=== PATIENT | female | born 1945 | race Caucasian/White ===

== ENCOUNTER 2017-12-16 10:23 | Outpatient (CLI) | payer MEDICARE | END 2017-12-16 10:24 | disposition home or self-care (01) | LOC: BICMAMMO 10:23 | PROVIDERS: ATTEND Nurse Practitioner | DX: Z12.31 Encounter for screening mammogram for malignant neoplasm of breast (principal) | CPT/HCPCS: 77063; 77067 ==

== ENCOUNTER 2018-07-26 11:57 | Outpatient (CLI) | payer MEDICARE | END 2018-07-26 11:58 | disposition home or self-care (01) | LOC: BICULT 11:57 | PROVIDERS: ATTEND Urology | DX: N39.41 Urge incontinence (principal); Z87.440 Personal history of urinary (tract) infections | CPT/HCPCS: 76770 ==

== ENCOUNTER 2019-02-08 13:26 | Outpatient (CLI) | payer MEDICARE ==
--- NOTE | 2019-02-08 14:41 | MMO ---
Bilateral MAMMO Bilat Screen [facility]. CLINICAL HISTORY: Patient is 73 years old and is seen for screening. The patient has no family history of breast cancer. The patient has no personal history of cancer. The patient has a history of left Ultrasound Guided Core Biopsy in ? - benign. VIEWS: The views performed were: bilateral craniocaudal with tomosynthesis and bilateral mediolateral oblique with tomosynthesis. FILMS COMPARED: The present examination has been compared to prior imaging studies performed at [facility] on 12/16/2017, and at [facility], [facility] on 03/21/2014. MAMMOGRAM FINDINGS: There are scattered fibroglandular densities. There is a stable biopsy clip seen in the left breast. There are no suspicious masses, suspicious calcifications, or new areas of architectural distortion. IMPRESSION: THERE IS NO MAMMOGRAPHIC EVIDENCE OF MALIGNANCY. A ROUTINE FOLLOW-UP MAMMOGRAM IN 1 YEAR IS RECOMMENDED. THE RESULTS OF THIS EXAM WERE SENT TO THE PATIENT. ACR BI-RADS Category 2 - Benign finding MAMMOGRAPHY NOTE: 1. A negative mammogram report should not delay a biopsy if a dominant of clinically suspicious mass is present. 2. Approximately 10% to 15% of breast cancers are not detected by mammography. 3. Adenosis and dense breasts may obscure an underlying neoplasm.
== END 2019-02-08 13:27 | disposition home or self-care (01) ==
LOC: BICMAMMO 13:26
PROVIDERS: ATTEND Nurse Practitioner
DX: Z12.31 Encounter for screening mammogram for malignant neoplasm of breast (principal)
CPT/HCPCS: 77063; 77067

== ENCOUNTER 2020-07-24 10:33 | Outpatient (CLI) | payer MEDICARE ==
--- NOTE | 2020-07-24 11:37 | MMO ---
Bilateral MAMMO Bilat Screen [facility]. CLINICAL HISTORY: Patient is 74 years old and is seen for screening. The patient has no family history of breast cancer. The patient has no personal history of cancer. The patient has a history of left Ultrasound Guided Core Biopsy in ? - benign. VIEWS: The views performed were: bilateral craniocaudal with tomosynthesis and bilateral mediolateral oblique with tomosynthesis. FILMS COMPARED: The present examination has been compared to prior imaging studies performed at [facility] on 12/16/2017 and 02/08/2019, and at [facility], [facility] on 03/21/2014. This study has been interpreted with the assistance of computer-aided detection. MAMMOGRAM FINDINGS: There are scattered fibroglandular densities. There is a biopsy clip seen in the left breast. There are no suspicious masses, suspicious calcifications, or new areas of architectural distortion. IMPRESSION: THERE IS NO MAMMOGRAPHIC EVIDENCE OF MALIGNANCY. A ROUTINE FOLLOW-UP MAMMOGRAM IN 1 YEAR IS RECOMMENDED. THE RESULTS OF THIS EXAM WERE SENT TO THE PATIENT. ACR BI-RADS Category 2 - Benign finding MAMMOGRAPHY NOTE: 1. A negative mammogram report should not delay a biopsy if a dominant of clinically suspicious mass is present. 2. Approximately 10% to 15% of breast cancers are not detected by mammography. 3. Adenosis and dense breasts may obscure an underlying neoplasm. Reported by: ZAIDA DEXTER MD Electonically Signed: [id number]
== END 2020-07-24 10:34 | disposition home or self-care (01) ==
LOC: BICMAMMO 10:33
PROVIDERS: ATTEND Nurse Practitioner
DX: Z12.31 Encounter for screening mammogram for malignant neoplasm of breast (principal); Z91.89 Other specified personal risk factors, not elsewhere classified
CPT/HCPCS: 77063; 77067

== ENCOUNTER 2023-02-16 15:43 | Inpatient (IN) | payer MEDICARE ==
[~2023-02-16 15:43] MED LIST: Iopamidol-370 76% 500 ML MDV (1 ML CHARGE) ONE
[2023-02-16 16:56] LABS: #Basophils 0.1 thou/uL (0.0-0.2); #Eosinphils 0.2 thou/uL (0.0-0.7); #Lymphocytes 2.1 thou/uL (1.20-3.40); #Monocytes 0.8 thou/uL (0.11-0.59); #Neutrophils 7.4 thou/uL (1.40-6.50); %Basophils 0.6 % (0.0-1.0); %Eosinophils 1.8 % (0.0-10.0); %Lymphocytes 20.2 % (21.0-51.0); %Monocytes 7.2 % (0.0-10.0); %Neutrophils 70.1 % (42.0-75.0); Hemoglobin 12.5 g/dL (12.0-16.0); Mean Corpuscular Hemoglobin 31.6 pg (27.0-31.0); Mean Corpuscular Volume 95.6 fl (78.0-98.0); Mean Platelet Volume 6.5 fL (7.4-10.4); Platelet Count 367 10x3/uL (130-400); RBC Distribution Width 11.8 % (11.5-14.5); Red Blood Cell (RBC) Count 3.95 mill/uL (4.20-5.40); White Blood Cell (WBC) Count 10.5 10x3/uL (4.8-10.8)
[2023-02-16 17:22] LABS: ALT (SGPT) 12 U/L (8-55); AST (SGOT) 21 U/L (5-34); Albumin 3.7 g/dL (3.4-4.8); Alkaline Phosphatase 97 U/L (40-110); Anion Gap 14 mmol/L (10-20); BUN (Urea Nitrogen) 20 mg/dL (9.8-20.1); Bilirubin, Total 0.4 mg/dL (0.2-1.2); Calc. Creatinine Clearance 0 mL/min (70-130); Calcium 10.4 mg/dL (7.8-10.44); Carbon Dioxide 24 mmol/L (23-31); Chloride 101 mmol/L (98-107); Estimated GFR 65; Globulin 3.9 g/dL (2.4-3.5); Glucose 97 mg/dL (83-110); Lipase 36 U/L (8-78); Potassium 3.7 mmol/L (3.5-5.1); Protein, Total 7.6 g/dL (5.8-8.1); Sodium 135 mmol/L (136-145)
[2023-02-16] MEDS ORDERED: Ondansetron ODT 4 MG TAB SL PRN (20:15)
[2023-02-16] MEDS ORDERED: Ondansetron PF 4 MG/2 ML Vial IVP PRN (20:15)
[2023-02-16] MEDS ORDERED: Acetaminophen 650 MG Suppository PR PRN (20:16)
[2023-02-16 21:35] VITALS: BMI 30.2
[2023-02-16] MEDS: Sodium Chloride 0.9% 1,000 ML IV SCH (21:43)
[2023-02-16] MEDS: Acetaminophen 325 MG TAB PO PRN (21:54)
[2023-02-16] MEDS ORDERED: traZODone HCl 50 MG TAB PO SCH (22:00)
[2023-02-16] MEDS ORDERED: rOPINIRole HCl 0.5 MG TAB PO SCH (22:00)
[2023-02-17 04:58] LABS: Bacteria/HPF None Seen HPF (None Seen); Bilirubin Negative (Negative); Blood, Urine Negative (Negative); Clarity Clear (Clear); Glucose, Urine (Dipstick) Normal (Negative); Ketone, Urine Trace mg/dL (Negative); Leukocyte 250 Leu/uL (Negative); Nitrite 2+ (Negative); Protein, Urine (Dipstick) Negative (Neg-Trace); RBC/HPF 0-3 HPF (0-3); Specific Gravity, Urine 1.029 (1.002-1.036); Squamous Epithelial 0-3 HPF (0-3); Urobilinogen Normal mg/dL (Less than 2)
[2023-02-17] MEDS: Sodium Chloride 0.9% 1,000 ML IV SCH (05:35)
[2023-02-17] MEDS: Levothyroxine Sodium 75 MCG TAB PO SCH (05:36)
[2023-02-17 06:17] LABS: #Basophils 0.1 thou/uL (0.0-0.2); #Eosinphils 0.5 thou/uL (0.0-0.7); #Lymphocytes 2.3 thou/uL (1.20-3.40); #Monocytes 0.6 thou/uL (0.11-0.59); #Neutrophils 4.1 thou/uL (1.40-6.50); %Basophils 1.3 % (0.0-1.0); %Eosinophils 6.3 % (0.0-10.0); %Lymphocytes 30.7 % (21.0-51.0); %Monocytes 7.3 % (0.0-10.0); %Neutrophils 54.5 % (42.0-75.0); Hemoglobin 10.5 g/dL (12.0-16.0); Mean Corpuscular Hemoglobin 31.3 pg (27.0-31.0); Mean Corpuscular Volume 97.6 fl (78.0-98.0); Mean Platelet Volume 6.6 fL (7.4-10.4); Platelet Count 295 10x3/uL (130-400); Red Blood Cell (RBC) Count 3.35 mill/uL (4.20-5.40); White Blood Cell (WBC) Count 7.6 10x3/uL (4.8-10.8)
[2023-02-17 06:45] LABS: Anion Gap 11 mmol/L (10-20); BUN (Urea Nitrogen) 14 mg/dL (9.8-20.1); Calc. Creatinine Clearance 74 mL/min (70-130); Carbon Dioxide 23 mmol/L (23-31); Chloride 111 mmol/L (98-107); Estimated GFR 76; Glucose 80 mg/dL (83-110); Potassium 3.4 mmol/L (3.5-5.1); Sodium 142 mmol/L (136-145)
[2023-02-17] MEDS ORDERED: guaiFENesin 200 MG TAB PO PRN (08:15)
[2023-02-17] MEDS: Acetaminophen 325 MG TAB PO PRN (09:21)
[2023-02-17] MEDS: DULoxetine 60 MG CAP PO SCH (09:21)
[2023-02-17] MEDS: Fish Oil 1,000 MG CAP PO SCH (09:22)
[2023-02-17] MEDS: Folic Acid 1 MG TAB PO SCH (09:22)
[2023-02-17] MEDS: Multivit, Therapeutic 1 TAB PO SCH (09:22)
[2023-02-17] MEDS: Fluticasone Propionate Nasal Spray 16 gm Bottle NASAL SCH (10:20)
[2023-02-17] MEDS: Artificial Tear Sol 15 ML BOT EA EYE SCH ×2 (10:20→20:07)
[2023-02-17] MEDS: rOPINIRole HCl 0.5 MG TAB PO SCH (20:08)
[2023-02-17] MEDS: traZODone HCl 50 MG TAB PO SCH (20:10)
[2023-02-17] MEDS: Latanoprost 0.005% Ophth Soln 2.5 ml Bottle EA EYE SCH (21:47)
[2023-02-18] MEDS: Levothyroxine Sodium 75 MCG TAB PO SCH (05:14)
[2023-02-18] MEDS: HYDROcodone/Acetaminophen 5/325 mg Tablet PO PRN ×2 (06:37→21:46)
[2023-02-18] MEDS: Artificial Tear Sol 15 ML BOT EA EYE SCH ×2 (08:14→21:48)
[2023-02-18] MEDS: DULoxetine 60 MG CAP PO SCH (08:14)
[2023-02-18] MEDS: Multivit, Therapeutic 1 TAB PO SCH (08:14)
[2023-02-18] MEDS: Fish Oil 1,000 MG CAP PO SCH (08:14)
[2023-02-18] MEDS: Fluticasone Propionate Nasal Spray 16 gm Bottle NASAL SCH (08:14)
[2023-02-18] MEDS: Apixaban 5 MG TAB PO SCH ×2 (08:14→21:46)
[2023-02-18] MEDS: Folic Acid 1 MG TAB PO SCH (08:14)
[2023-02-18] MEDS: rOPINIRole HCl 0.5 MG TAB PO SCH (21:44)
[2023-02-18] MEDS: traZODone HCl 50 MG TAB PO SCH (21:45)
[2023-02-18] MEDS: Latanoprost 0.005% Ophth Soln 2.5 ml Bottle EA EYE SCH (21:47)
[2023-02-19] MEDS: Levothyroxine Sodium 75 MCG TAB PO SCH (05:01)
[2023-02-19] MEDS: DULoxetine 30 MG CAP PO SCH (08:39)
[2023-02-19] MEDS: Multivit, Therapeutic 1 TAB PO SCH (08:39)
[2023-02-19] MEDS: Fish Oil 1,000 MG CAP PO SCH (08:39)
[2023-02-19] MEDS: Folic Acid 1 MG TAB PO SCH (08:40)
[2023-02-19] MEDS: Fluticasone Propionate Nasal Spray 16 gm Bottle NASAL SCH (08:40)
[2023-02-19] MEDS: Artificial Tear Sol 15 ML BOT EA EYE SCH ×2 (08:40→20:34)
[2023-02-19] MEDS: Apixaban 5 MG TAB PO SCH ×2 (08:40→20:34)
[2023-02-19] MEDS: Latanoprost 0.005% Ophth Soln 2.5 ml Bottle EA EYE SCH (20:35)
[2023-02-19] MEDS: rOPINIRole HCl 0.5 MG TAB PO SCH (20:35)
[2023-02-19] MEDS: HYDROcodone/Acetaminophen 5/325 mg Tablet PO PRN (20:36)
[2023-02-19] MEDS: traZODone HCl 50 MG TAB PO SCH (20:36)
[2023-02-20] MEDS: Levothyroxine Sodium 75 MCG TAB PO SCH (05:15)
[2023-02-20 07:39] VITALS: BP 126/66; TEMP 98
[2023-02-20] MEDS: Multivit, Therapeutic 1 TAB PO SCH (08:28)
[2023-02-20] MEDS: Folic Acid 1 MG TAB PO SCH (08:28)
[2023-02-20] MEDS: Apixaban 5 MG TAB PO SCH (08:28)
[2023-02-20] MEDS: Fish Oil 1,000 MG CAP PO SCH (08:29)
[2023-02-20] MEDS: Artificial Tear Sol 15 ML BOT EA EYE SCH (08:29)
[2023-02-20] MEDS: DULoxetine 30 MG CAP PO SCH (08:29)
[2023-02-20] MEDS: Fluticasone Propionate Nasal Spray 16 gm Bottle NASAL SCH (08:30)
[2023-02-20 08:59] LABS: #Basophils 0.1 thou/uL (0.0-0.2); #Eosinphils 0.4 thou/uL (0.0-0.7); #Lymphocytes 2.1 thou/uL (1.20-3.40); #Monocytes 0.6 thou/uL (0.11-0.59); #Neutrophils 5.4 thou/uL (1.40-6.50); %Basophils 0.6 % (0.0-1.0); %Eosinophils 4.8 % (0.0-10.0); %Lymphocytes 24.9 % (21.0-51.0); %Neutrophils 62.7 % (42.0-75.0); Hemoglobin 11.2 g/dL (12.0-16.0); Mean Corpuscular HGB CONC 33.1 g/dL (32.0-36.0); Mean Corpuscular Hemoglobin 31.5 pg (27.0-31.0); Mean Corpuscular Volume 95.2 fl (78.0-98.0); Mean Platelet Volume 6.4 fL (7.4-10.4); Platelet Count 319 10x3/uL (130-400); RBC Distribution Width 12.2 % (11.5-14.5); Red Blood Cell (RBC) Count 3.54 mill/uL (4.20-5.40); White Blood Cell (WBC) Count 8.6 10x3/uL (4.8-10.8)
[2023-02-20 09:20] LABS: Anion Gap 13 mmol/L (10-20); BUN (Urea Nitrogen) 15 mg/dL (9.8-20.1); Calc. Creatinine Clearance 72 mL/min (70-130); Calcium 9.4 mg/dL (7.8-10.44); Carbon Dioxide 24 mmol/L (23-31); Chloride 107 mmol/L (98-107); Estimated GFR 73; Glucose 98 mg/dL (83-110); Potassium 3.7 mmol/L (3.5-5.1); Sodium 140 mmol/L (136-145)
== END 2023-02-20 11:17 | disposition swing bed (61) | DRG 175 ==
LOC: ERS 15:43 → T4-B 19:52 → OBSVTOIN 02-17 17:24
PROVIDERS: ADMIT Internal Medicine; ATTEND Internal Medicine
DX: I26.93 Single subsegmental thrombotic pulmonary embolism without acute cor pulmonale (principal); G93.41 Metabolic encephalopathy; I82.413 Acute embolism and thrombosis of femoral vein, bilateral; C34.11 Malignant neoplasm of upper lobe, right bronchus or lung; E87.1 Hypo-osmolality and hyponatremia; I82.431 Acute embolism and thrombosis of right popliteal vein; I82.4Z2 Acute embolism and thrombosis of unspecified deep veins of left distal lower extremity; Z66 Do not resuscitate; I10 Essential (primary) hypertension; E03.9 Hypothyroidism, unspecified; E78.5 Hyperlipidemia, unspecified; I25.10 Atherosclerotic heart disease of native coronary artery without angina pectoris; G89.29 Other chronic pain; M54.50 Low back pain, unspecified; W18.30XA Fall on same level, unspecified, initial encounter; S82.832A Other fracture of upper and lower end of left fibula, initial encounter for closed fracture; Z79.899 Other long term (current) drug therapy; Z79.51 Long term (current) use of inhaled steroids; Z79.890 Hormone replacement therapy; Z90.710 Acquired absence of both cervix and uterus; Z98.890 Other specified postprocedural states
CPT/HCPCS: 36415; 70450; 71045; 71275; 80048; 80053; 81001; 83605; 83690; 84484; 85025; 93005; 93970; 94760; 96360; 96361; 96372; G0378; J1650; J7050; Q9967

== ENCOUNTER 2023-03-03 14:00 | Outpatient (CLI) | payer MEDICARE | END 2023-03-03 14:01 | disposition home or self-care (01) | LOC: TBSIIMAG 14:00 | PROVIDERS: ATTEND Neurological Surgery | DX: M54.2 Cervicalgia (principal); M79.641 Pain in right hand; M47.812 Spondylosis without myelopathy or radiculopathy, cervical region; M46.02 Spinal enthesopathy, cervical region; M25.841 Other specified joint disorders, right hand; M77.8 Other enthesopathies, not elsewhere classified | CPT/HCPCS: 72040 ==

== ENCOUNTER 2023-03-05 12:29 | Outpatient (CLI) | payer MEDICARE | END 2023-03-05 12:30 | disposition home or self-care (01) | LOC: TXB&SI 12:29 → TBSIIMAG 12:30 | PROVIDERS: ATTEND Neurological Surgery | DX: M47.16 Other spondylosis with myelopathy, lumbar region (principal); M54.6 Pain in thoracic spine; M48.061 Spinal stenosis, lumbar region without neurogenic claudication; M51.24 Other intervertebral disc displacement, thoracic region; M24.28 Disorder of ligament, vertebrae; M48.07 Spinal stenosis, lumbosacral region | CPT/HCPCS: 72146; 72148 ==

== ENCOUNTER 2023-05-26 17:51 | Inpatient (IN) | payer MEDICARE ==
[2023-05-26 19:12] LABS: #Monocytes 0.1 thou/uL (0.11-0.59); #Neutrophils 15.3 thou/uL (1.40-6.50); %Basophils 0.3 % (0.0-1.0); %Eosinophils 0.1 % (0.0-10.0); %Lymphocytes 2.4 % (21.0-51.0); %Monocytes 0.8 % (0.0-10.0); %Neutrophils 95.8 % (42.0-75.0); Hematocrit 35.7 % (36.0-47.0); Hemoglobin 11.5 g/dL (12.0-16.0); Mean Corpuscular HGB CONC 32.2 g/dL (32.0-36.0); Mean Corpuscular Hemoglobin 30.3 pg (27.0-31.0); Mean Corpuscular Volume 93.9 fl (78.0-98.0); Mean Platelet Volume 9.4 fL (7.4-10.4); Platelet Count 234 10x3/uL (130-400); RBC Distribution Width 14.1 % (11.5-14.5)
[2023-05-26 19:44] LABS: ALT (SGPT) 10 U/L (8-55); AST (SGOT) 17 U/L (5-34); Albumin 3.3 g/dL (3.4-4.8); Alkaline Phosphatase 98 U/L (40-110); Anion Gap 14 mmol/L (10-20); BUN (Urea Nitrogen) 25 mg/dL (9.8-20.1); Bilirubin, Total 0.5 mg/dL (0.2-1.2); Calc. Creatinine Clearance 0 mL/min (70-130); Calcium 9.4 mg/dL (7.8-10.44); Carbon Dioxide 21 mmol/L (23-31); Chloride 105 mmol/L (98-107); Estimated GFR 68; Globulin 2.8 g/dL (2.4-3.5); Glucose 95 mg/dL (83-110); Lipase 34 U/L (8-78); Potassium 3.3 mmol/L (3.5-5.1); Protein, Total 6.1 g/dL (5.8-8.1); Sodium 137 mmol/L (136-145)
[2023-05-26] MEDS ORDERED: Cefepime 2 GM VIAL ONE (19:50)
[2023-05-26 19:52] LABS: Bacteria/HPF 4+ HPF (None Seen); Bilirubin Negative (Negative); Blood, Urine 3+ (Negative); CAUTI Indications for Culture Pelvic or flank pain; Clarity Turbid (Clear); Glucose, Urine (Dipstick) Normal (Negative); Ketone, Urine Negative (Negative); Leukocyte 250 Leu/uL (Negative); Nitrite Negative (Negative); Protein, Urine (Dipstick) 20 mg/dL (Neg-Trace); RBC/HPF Greater than 50 HPF (0-3); Specific Gravity, Urine 1.012 (1.002-1.036); Squamous Epithelial 0-3 HPF (0-3); Urobilinogen Normal mg/dL (Less than 2); WBC/HPF 21-50 HPF (0-3)
[2023-05-26 19:55] LABS: Urine Culture Reflex Yes Yes
[2023-05-26] MEDS ORDERED: Vancomycin 1 GM/200 ML (FROZEN) BAG ONE (21:03)
[2023-05-26 22:23] LABS: Lactic Acid 2.2 mmol/L (0.5-2.2)
[2023-05-26] MEDS ORDERED: Potassium Chloride 20 MEQ TAB ONE (22:35)
[2023-05-26] MEDS ORDERED: Ondansetron PF 4 MG/2 ML Vial IVP PRN (23:24)
[2023-05-26] MEDS ORDERED: Sodium Chloride 0.9% 1,000 ML IV SCH (23:30)
[2023-05-26] MEDS ORDERED: Apixaban 5 MG TAB PO SCH (23:45)
[2023-05-27] MEDS: Acetaminophen 325 MG TAB PO PRN ×2 (00:02→06:58)
[2023-05-27 00:15] VITALS: BMI 31.8
[2023-05-27 06:52] LABS: #Basophils 0.1 thou/uL (0.0-0.2); #Eosinphils 0.1 thou/uL (0.0-0.7); #Monocytes 0.9 thou/uL (0.11-0.59); #Neutrophils 18.2 thou/uL (1.40-6.50); %Basophils 0.3 % (0.0-1.0); %Eosinophils 0.6 % (0.0-10.0); %Monocytes 4.2 % (0.0-10.0); %Neutrophils 89.5 % (42.0-75.0); Hematocrit 32.5 % (36.0-47.0); Hemoglobin 10.1 g/dL (12.0-16.0); Mean Corpuscular HGB CONC 31.1 g/dL (32.0-36.0); Mean Corpuscular Hemoglobin 30.1 pg (27.0-31.0); Mean Platelet Volume 9.4 fL (7.4-10.4); Platelet Count 213 10x3/uL (130-400); RBC Distribution Width 14.5 % (11.5-14.5); Red Blood Cell (RBC) Count 3.35 mill/uL (4.20-5.40); White Blood Cell (WBC) Count 20.4 10x3/uL (4.8-10.8)
[2023-05-27 07:13] LABS: Anion Gap 11 mmol/L (10-20); BUN (Urea Nitrogen) 19 mg/dL (9.8-20.1); Calc. Creatinine Clearance 76 mL/min (70-130); Calcium 8.7 mg/dL (7.8-10.44); Carbon Dioxide 22 mmol/L (23-31); Chloride 111 mmol/L (98-107); Estimated GFR 77; Glucose 88 mg/dL (83-110); Sodium 140 mmol/L (136-145)
[2023-05-27] MEDS: Apixaban 5 MG TAB PO SCH ×2 (08:37→20:44)
[2023-05-27] MEDS: Cefepime 2 GM in Sodium Chloride 0.9% 100 ML IVPB SCH ×2 (08:37→20:28)
[2023-05-27] MEDS: traZODone HCl 50 MG TAB PO SCH (20:45)
[2023-05-27] MEDS ORDERED: DULoxetine 60 MG CAP PO SCH (20:45)
[2023-05-27] MEDS: cycloSPORINE 0.05% Ophthalmic Droperette EA EYE SCH (21:46)
[2023-05-28] MEDS: Acetaminophen 325 MG TAB PO PRN ×3 (06:02→22:00)
[2023-05-28 06:42] LABS: Hematocrit 32.7 % (36.0-47.0); Hemoglobin 10.4 g/dL (12.0-16.0); Mean Corpuscular HGB CONC 31.8 g/dL (32.0-36.0); Mean Corpuscular Hemoglobin 30.3 pg (27.0-31.0); Mean Corpuscular Volume 95.3 fl (78.0-98.0); Platelet Count 189 10x3/uL (130-400); RBC Distribution Width 14.3 % (11.5-14.5); Red Blood Cell (RBC) Count 3.43 mill/uL (4.20-5.40); White Blood Cell (WBC) Count 9.1 10x3/uL (4.8-10.8)
[2023-05-28 06:43] LABS: #Basophils 0.1 thou/uL (0.0-0.2); #Eosinphils 0.2 thou/uL (0.0-0.7); #Monocytes 0.8 thou/uL (0.11-0.59); %Basophils 0.6 % (0.0-1.0); %Eosinophils 2.2 % (0.0-10.0); %Lymphocytes 10.3 % (21.0-51.0); %Monocytes 9.1 % (0.0-10.0); %Neutrophils 77.2 % (42.0-75.0); Mean Platelet Volume 9.5 fL (7.4-10.4)
[2023-05-28 07:02] LABS: Anion Gap 10 mmol/L (10-20); BUN (Urea Nitrogen) 15 mg/dL (9.8-20.1); Calc. Creatinine Clearance 75 mL/min (70-130); Carbon Dioxide 24 mmol/L (23-31); Chloride 108 mmol/L (98-107); Sodium 138 mmol/L (136-145)
[2023-05-28 07:03] LABS: Estimated GFR 76; Glucose 90 mg/dL (83-110); Magnesium 1.6 mg/dL (1.6-2.6)
[2023-05-28] MEDS ORDERED: Levothyroxine Sodium 75 MCG TAB PO SCH (09:00)
[2023-05-28] MEDS: Cefepime 2 GM in Sodium Chloride 0.9% 100 ML IVPB SCH ×2 (09:16→21:48)
[2023-05-28] MEDS: DULoxetine 60 MG CAP PO SCH (09:16)
[2023-05-28] MEDS: cycloSPORINE 0.05% Ophthalmic Droperette EA EYE SCH ×2 (09:17→21:47)
[2023-05-28] MEDS: Apixaban 5 MG TAB PO SCH ×2 (09:17→21:48)
[2023-05-28] MEDS: Cyanocobalamin (Vitamin B-12) 1,000 MCG TAB PO SCH (09:17)
[2023-05-28] MEDS: Sodium Chloride 0.65% Nasal 44 ML BOT EA NARE PRN (09:18)
[2023-05-28] MEDS ORDERED: ALPRAZolam 0.5 MG TAB PO PRN (13:19)
[2023-05-28] MEDS: traZODone HCl 50 MG TAB PO SCH (21:47)
[2023-05-28] MEDS: Latanoprost 0.005% Ophth Soln 2.5 ml Bottle EA EYE SCH (23:17)
[2023-05-29] MEDS: Levothyroxine Sodium 75 MCG TAB PO SCH (04:32)
[2023-05-29] MEDS: Acetaminophen 325 MG TAB PO PRN ×2 (04:33→21:45)
[2023-05-29] MEDS ORDERED: traMADol HCl 50 MG TAB PO PRN (04:48)
[2023-05-29 06:05] LABS: #Basophils 0.1 thou/uL (0.0-0.2); #Eosinphils 0.3 thou/uL (0.0-0.7); #Monocytes 0.8 thou/uL (0.11-0.59); #Neutrophils 3.5 thou/uL (1.40-6.50); %Eosinophils 5.1 % (0.0-10.0); %Lymphocytes 25.9 % (21.0-51.0); %Monocytes 12.4 % (0.0-10.0); %Neutrophils 55.3 % (42.0-75.0); Hematocrit 33.4 % (36.0-47.0); Hemoglobin 10.8 g/dL (12.0-16.0); Mean Corpuscular HGB CONC 32.3 g/dL (32.0-36.0); Mean Corpuscular Hemoglobin 29.7 pg (27.0-31.0); Mean Platelet Volume 9.5 fL (7.4-10.4); Platelet Count 189 10x3/uL (130-400); RBC Distribution Width 14.3 % (11.5-14.5); Red Blood Cell (RBC) Count 3.64 mill/uL (4.20-5.40); White Blood Cell (WBC) Count 6.3 10x3/uL (4.8-10.8)
[2023-05-29 06:26] LABS: Anion Gap 13 mmol/L (10-20); BUN (Urea Nitrogen) 13 mg/dL (9.8-20.1); Calc. Creatinine Clearance 79 mL/min (70-130); Calcium 9.4 mg/dL (7.8-10.44); Carbon Dioxide 22 mmol/L (23-31); Chloride 110 mmol/L (98-107); Estimated GFR 80; Glucose 88 mg/dL (83-110); Sodium 141 mmol/L (136-145)
[2023-05-29 06:56] LABS: Mean Corpuscular Volume 91.8 fl (78.0-98.0)
[2023-05-29] MEDS: Apixaban 5 MG TAB PO SCH ×2 (08:39→21:46)
[2023-05-29] MEDS: Ascorbic Acid 500 mg Chewable Tablet PO SCH (08:39)
[2023-05-29] MEDS: Cyanocobalamin (Vitamin B-12) 1,000 MCG TAB PO SCH (08:39)
[2023-05-29] MEDS: DULoxetine 60 MG CAP PO SCH (08:39)
[2023-05-29] MEDS: Fluticasone Propionate Nasal Spray 16 gm Bottle NASAL SCH (08:41)
[2023-05-29] MEDS ORDERED: Ciprofloxacin 500 MG TAB PO SCH (08:45)
[2023-05-29] MEDS: Cefepime 2 GM in Sodium Chloride 0.9% 100 ML IVPB SCH (08:46)
[2023-05-29] MEDS ORDERED: CALCIUM CARB PO SCH (09:00)
[2023-05-29] MEDS ORDERED: MAG OX PO SCH (09:00)
[2023-05-29] MEDS ORDERED: ZINC SULF PO SCH (09:00)
[2023-05-29] MEDS: cycloSPORINE 0.05% Ophthalmic Droperette EA EYE SCH ×2 (09:46→21:49)
[2023-05-29] MEDS: traZODone HCl 50 MG TAB PO SCH (21:46)
[2023-05-29] MEDS: Ciprofloxacin 500 MG TAB PO SCH (21:46)
[2023-05-29] MEDS: Latanoprost 0.005% Ophth Soln 2.5 ml Bottle EA EYE SCH (21:49)
[2023-05-30] MEDS: Ciprofloxacin 500 MG TAB PO SCH ×2 (05:13→21:17)
[2023-05-30] MEDS: Levothyroxine Sodium 75 MCG TAB PO SCH (05:13)
[2023-05-30] MEDS: Cyanocobalamin (Vitamin B-12) 1,000 MCG TAB PO SCH (08:58)
[2023-05-30] MEDS: DULoxetine 60 MG CAP PO SCH (08:58)
[2023-05-30] MEDS: Acetaminophen 325 MG TAB PO PRN ×2 (08:58→21:19)
[2023-05-30] MEDS: cycloSPORINE 0.05% Ophthalmic Droperette EA EYE SCH ×2 (08:59→21:28)
[2023-05-30] MEDS: Fluticasone Propionate Nasal Spray 16 gm Bottle NASAL SCH (08:59)
[2023-05-30] MEDS: Ascorbic Acid 500 mg Chewable Tablet PO SCH (08:59)
[2023-05-30] MEDS: Apixaban 5 MG TAB PO SCH ×2 (08:59→21:17)
[2023-05-30] MEDS: Latanoprost 0.005% Ophth Soln 2.5 ml Bottle EA EYE SCH (21:17)
[2023-05-30] MEDS: traZODone HCl 50 MG TAB PO SCH (21:17)
[2023-05-30] MEDS: Sodium Chloride 0.65% Nasal 44 ML BOT EA NARE PRN (21:26)
[2023-05-31] MEDS: Levothyroxine Sodium 75 MCG TAB PO SCH (06:02)
[2023-05-31] MEDS: Ciprofloxacin 500 MG TAB PO SCH ×2 (06:02→21:19)
[2023-05-31] MEDS: Acetaminophen 325 MG TAB PO PRN (06:04)
[2023-05-31] MEDS: Cyanocobalamin (Vitamin B-12) 1,000 MCG TAB PO SCH (08:37)
[2023-05-31] MEDS: Apixaban 5 MG TAB PO SCH ×2 (08:37→21:19)
[2023-05-31] MEDS: DULoxetine 60 MG CAP PO SCH (08:37)
[2023-05-31] MEDS: Ascorbic Acid 500 mg Chewable Tablet PO SCH (08:37)
[2023-05-31] MEDS: cycloSPORINE 0.05% Ophthalmic Droperette EA EYE SCH ×2 (08:38→22:13)
[2023-05-31] MEDS: Fluticasone Propionate Nasal Spray 16 gm Bottle NASAL SCH (08:38)
[2023-05-31] MEDS: traZODone HCl 50 MG TAB PO SCH (21:19)
[2023-05-31] MEDS: Latanoprost 0.005% Ophth Soln 2.5 ml Bottle EA EYE SCH (21:20)
[2023-06-01] MEDS: Levothyroxine Sodium 75 MCG TAB PO SCH (05:26)
[2023-06-01] MEDS: Ciprofloxacin 500 MG TAB PO SCH ×2 (05:26→20:57)
[2023-06-01] MEDS: Ascorbic Acid 500 mg Chewable Tablet PO SCH (09:10)
[2023-06-01] MEDS: Cyanocobalamin (Vitamin B-12) 1,000 MCG TAB PO SCH (09:10)
[2023-06-01] MEDS: cycloSPORINE 0.05% Ophthalmic Droperette EA EYE SCH ×2 (09:10→21:21)
[2023-06-01] MEDS: DULoxetine 60 MG CAP PO SCH (09:10)
[2023-06-01] MEDS: Apixaban 5 MG TAB PO SCH ×2 (09:10→20:57)
[2023-06-01] MEDS: Sodium Chloride 0.65% Nasal 44 ML BOT EA NARE PRN (09:11)
[2023-06-01] MEDS: Fluticasone Propionate Nasal Spray 16 gm Bottle NASAL SCH (09:11)
[2023-06-01] MEDS: Acetaminophen 325 MG TAB PO PRN (17:24)
[2023-06-01] MEDS: traZODone HCl 50 MG TAB PO SCH (20:57)
[2023-06-01] MEDS: Latanoprost 0.005% Ophth Soln 2.5 ml Bottle EA EYE SCH (20:57)
[2023-06-02] MEDS: Acetaminophen 325 MG TAB PO PRN (03:07)
[2023-06-02] MEDS: Levothyroxine Sodium 75 MCG TAB PO SCH (05:30)
[2023-06-02] MEDS: Ciprofloxacin 500 MG TAB PO SCH ×2 (05:30→21:52)
[2023-06-02] MEDS: Apixaban 5 MG TAB PO SCH ×2 (08:37→21:52)
[2023-06-02] MEDS: Ascorbic Acid 500 mg Chewable Tablet PO SCH (08:37)
[2023-06-02] MEDS: Sodium Chloride 0.65% Nasal 44 ML BOT EA NARE PRN (08:37)
[2023-06-02] MEDS: cycloSPORINE 0.05% Ophthalmic Droperette EA EYE SCH ×2 (08:37→21:52)
[2023-06-02] MEDS: Cyanocobalamin (Vitamin B-12) 1,000 MCG TAB PO SCH (08:37)
[2023-06-02] MEDS: Fluticasone Propionate Nasal Spray 16 gm Bottle NASAL SCH (08:37)
[2023-06-02] MEDS: DULoxetine 60 MG CAP PO SCH (08:37)
[2023-06-02] MEDS: traZODone HCl 50 MG TAB PO SCH (21:52)
[2023-06-02] MEDS: Latanoprost 0.005% Ophth Soln 2.5 ml Bottle EA EYE SCH (21:53)
[2023-06-03] MEDS: Ciprofloxacin 500 MG TAB PO SCH ×2 (05:56→22:10)
[2023-06-03] MEDS: Levothyroxine Sodium 75 MCG TAB PO SCH (05:56)
[2023-06-03] MEDS: cycloSPORINE 0.05% Ophthalmic Droperette EA EYE SCH ×2 (08:50→22:10)
[2023-06-03] MEDS: Ascorbic Acid 500 mg Chewable Tablet PO SCH (08:50)
[2023-06-03] MEDS: Apixaban 5 MG TAB PO SCH ×2 (08:50→22:10)
[2023-06-03] MEDS: DULoxetine 60 MG CAP PO SCH (08:50)
[2023-06-03] MEDS: Cyanocobalamin (Vitamin B-12) 1,000 MCG TAB PO SCH (08:50)
[2023-06-03] MEDS: Fluticasone Propionate Nasal Spray 16 gm Bottle NASAL SCH (08:51)
[2023-06-03] MEDS: Sodium Chloride 0.65% Nasal 44 ML BOT EA NARE PRN (08:51)
[2023-06-03] MEDS: traZODone HCl 50 MG TAB PO SCH (22:10)
[2023-06-03] MEDS: Latanoprost 0.005% Ophth Soln 2.5 ml Bottle EA EYE SCH (22:11)
[2023-06-04] MEDS: Ciprofloxacin 500 MG TAB PO SCH ×2 (06:08→21:22)
[2023-06-04] MEDS: Levothyroxine Sodium 75 MCG TAB PO SCH (06:08)
[2023-06-04] MEDS: Ascorbic Acid 500 mg Chewable Tablet PO SCH (08:52)
[2023-06-04] MEDS: DULoxetine 60 MG CAP PO SCH (08:52)
[2023-06-04] MEDS: Cyanocobalamin (Vitamin B-12) 1,000 MCG TAB PO SCH (08:52)
[2023-06-04] MEDS: Apixaban 5 MG TAB PO SCH ×2 (08:52→21:22)
[2023-06-04] MEDS: Fluticasone Propionate Nasal Spray 16 gm Bottle NASAL SCH (08:53)
[2023-06-04] MEDS: cycloSPORINE 0.05% Ophthalmic Droperette EA EYE SCH ×2 (09:57→21:22)
[2023-06-04] MEDS: traZODone HCl 50 MG TAB PO SCH (21:22)
[2023-06-04] MEDS: Latanoprost 0.005% Ophth Soln 2.5 ml Bottle EA EYE SCH (21:22)
[2023-06-05] MEDS: Levothyroxine Sodium 75 MCG TAB PO SCH (05:48)
[2023-06-05] MEDS: Ciprofloxacin 500 MG TAB PO SCH (05:48)
[2023-06-05] MEDS: Cyanocobalamin (Vitamin B-12) 1,000 MCG TAB PO SCH (09:00)
[2023-06-05] MEDS: Ascorbic Acid 500 mg Chewable Tablet PO SCH (09:00)
[2023-06-05] MEDS: Apixaban 5 MG TAB PO SCH (09:00)
[2023-06-05] MEDS: DULoxetine 60 MG CAP PO SCH (09:00)
[2023-06-05] MEDS: Fluticasone Propionate Nasal Spray 16 gm Bottle NASAL SCH (09:00)
[2023-06-05] MEDS: cycloSPORINE 0.05% Ophthalmic Droperette EA EYE SCH (09:28)
[2023-06-05 12:57] VITALS: BP 116/72; TEMP 98.1
== END 2023-06-05 14:37 | DRG 872 ==
LOC: ERS 17:51 → T4-B 22:03
PROVIDERS: ADMIT Internal Medicine; ATTEND Internal Medicine
DX: A41.50 Gram-negative sepsis, unspecified (principal); Z16.29 Resistance to other single specified antibiotic; N13.6 Pyonephrosis; I10 Essential (primary) hypertension; E78.5 Hyperlipidemia, unspecified; E03.9 Hypothyroidism, unspecified; F31.9 Bipolar disorder, unspecified; K44.9 Diaphragmatic hernia without obstruction or gangrene; E87.6 Hypokalemia; R53.81 Other malaise; H92.09 Otalgia, unspecified ear; B96.20 Unspecified Escherichia coli [E. coli] as the cause of diseases classified elsewhere; B96.4 Proteus (mirabilis) (morganii) as the cause of diseases classified elsewhere; Z66 Do not resuscitate; Z96.653 Presence of artificial knee joint, bilateral; Z96.643 Presence of artificial hip joint, bilateral; Z79.899 Other long term (current) drug therapy; Z86.718 Personal history of other venous thrombosis and embolism; Z90.710 Acquired absence of both cervix and uterus; Z98.1 Arthrodesis status; Z98.890 Other specified postprocedural states; Z83.6 Family history of other diseases of the respiratory system; Z79.01 Long term (current) use of anticoagulants
CPT/HCPCS: 36415; 74177; 80048; 80053; 81001; 83605; 83690; 83735; 85025; 87040; 87077; 87086; 87149; 87186; 96365; 96367; J0692; J3370-JW; J3490; J7050; Q9967

== ENCOUNTER 2023-09-07 14:40 | Emergency (ER) | payer MEDICARE, OTHER ==
[2023-09-07 15:14] LABS: #Basophils 0.1 thou/uL (0.0-0.2); #Eosinphils 0.2 thou/uL (0.0-0.7); #Monocytes 0.5 thou/uL (0.11-0.59); #Neutrophils 6.5 thou/uL (1.40-6.50); %Basophils 0.7 % (0.0-1.0); %Eosinophils 2.2 % (0.0-10.0); %Lymphocytes 31.2 % (21.0-51.0); %Monocytes 4.7 % (0.0-10.0); %Neutrophils 60.7 % (42.0-75.0); Hematocrit 38.1 % (36.0-47.0); Hemoglobin 12.4 g/dL (12.0-16.0); Mean Corpuscular HGB CONC 32.5 g/dL (32.0-36.0); Mean Corpuscular Hemoglobin 30.6 pg (27.0-31.0); Mean Corpuscular Volume 94.1 fl (78.0-98.0); Mean Platelet Volume 9.1 fL (7.4-10.4); Platelet Count 274 10x3/uL (130-400); RBC Distribution Width 14.3 % (11.5-14.5); Red Blood Cell (RBC) Count 4.05 mill/uL (4.20-5.40); White Blood Cell (WBC) Count 10.7 10x3/uL (4.8-10.8)
[2023-09-07 15:28] LABS: INR-International Normal Ratio 1.3; PTT 26.9 sec (22.9-36.1); Prothrombin Time 16.3 sec (12.0-14.7)
[2023-09-07 15:40] LABS: ALT (SGPT) 18 U/L (8-55); AST (SGOT) 28 U/L (5-34); Albumin 3.6 g/dL (3.4-4.8); Alkaline Phosphatase 85 U/L (40-110); Anion Gap 14 mmol/L (10-20); BUN (Urea Nitrogen) 23 mg/dL (9.8-20.1); Bilirubin, Total 0.3 mg/dL (0.2-1.2); Calc. Creatinine Clearance 0 mL/min (70-130); Carbon Dioxide 20 mmol/L (23-31); Chloride 106 mmol/L (98-107); Estimated GFR 54; Glucose 140 mg/dL (83-110); Potassium 4.2 mmol/L (3.5-5.1); Protein, Total 6.6 g/dL (5.8-8.1); Sodium 136 mmol/L (136-145)
[2023-09-07 16:52] LABS: Bilirubin Negative (Negative); Blood, Urine Negative (Negative); CAUTI Indications for Culture Pelvic or flank pain; Clarity Clear (Clear); Glucose, Urine (Dipstick) Normal (Negative); Ketone, Urine Negative (Negative); Leukocyte 75 Leu/uL (Negative); Nitrite Negative (Negative); Protein, Urine (Dipstick) Negative (Neg-Trace); RBC/HPF 0-3 HPF (0-3); Squamous Epithelial 0-3 HPF (0-3); Urobilinogen Normal mg/dL (Less than 2); pH, Urine 6.5 (5.0-9.0)
[2023-09-07 17:00] LABS: Bacteria/HPF 1+ HPF (None Seen)
[2023-09-07 17:01] LABS: Urine Culture Reflex Yes Yes
== END 2023-09-07 18:17 | disposition home or self-care (01) ==
LOC: ERS 14:40
DX: N39.0 Urinary tract infection, site not specified (principal); F43.0 Acute stress reaction; I25.10 Atherosclerotic heart disease of native coronary artery without angina pectoris; E03.9 Hypothyroidism, unspecified; I10 Essential (primary) hypertension; Z79.899 Other long term (current) drug therapy; Z79.01 Long term (current) use of anticoagulants
CPT/HCPCS: 36415; 80053; 81001; 83605; 85025; 85610; 85730; 87040; 87077; 87086; 87186; 93005; 94760; 96360

== ENCOUNTER 2024-04-07 15:14 | Inpatient (IN) | payer MEDICARE ==
[2024-04-07 15:43] LABS: #Basophils 0.06 10x3/uL (0.0-0.2); %Basophils 0.9 % (0.0-1.0); %Eosinophils 3.2 % (0.0-10.0); %Lymphocytes 18.5 % (21.0-51.0); %Monocytes 6.8 % (0.0-10.0); %Neutrophils 70.1 % (42.0-75.0); Hematocrit 37.8 % (36.0-47.0); Hemoglobin 12.4 g/dL (12.0-16.0); Mean Corpuscular HGB CONC 32.8 g/dL (32.0-36.0); Mean Corpuscular Hemoglobin 30.7 pg (27.0-31.0); Mean Corpuscular Volume 93.6 fL (78.0-98.0); Mean Platelet Volume 9.6 fL (7.4-10.4); Platelet Count 237 10x3/uL (130-400); RBC Distribution Width 14.3 % (11.5-14.5); Red Blood Cell (RBC) Count 4.04 mill/uL (4.20-5.40)
[2024-04-07 15:58] LABS: ALT (SGPT) 1126 U/L (8-55); AST (SGOT) 1100 U/L (5-34); Albumin 3.3 g/dL (3.4-4.8); Alkaline Phosphatase 262 U/L (40-110); Anion Gap 13 mmol/L (10-20); BUN (Urea Nitrogen) 17 mg/dL (9.8-20.1); Bilirubin, Total 1.9 mg/dL (0.2-1.2); Calc. Creatinine Clearance 0 mL/min (70-130); Carbon Dioxide 26 mmol/L (23-31); Chloride 106 mmol/L (98-107); Estimated GFR 62; Globulin 4.1 g/dL (2.4-3.5); Glucose 113 mg/dL (83-110); Lipase 43 U/L (8-78); Potassium 3.7 mmol/L (3.5-5.1); Protein, Total 7.4 g/dL (5.8-8.1); Sodium 141 mmol/L (136-145)
[2024-04-07] MEDS ORDERED: Ondansetron PF 4 MG/2 ML Vial ONE (16:04)
[2024-04-07] MEDS ORDERED: Morphine 4 MG/ML VIAL ONE (16:11)
[2024-04-07 16:19] LABS: Troponin I Less than 0.010 ng/mL (< 0.028)
[2024-04-07] MEDS ORDERED: Calcium Carbonate 500 MG ChewTAB PO PRN (18:53)
[2024-04-07] MEDS ORDERED: Ondansetron PF 4 MG/2 ML Vial IVP PRN (18:53)
[2024-04-07 20:03] LABS: HBCM Index 0.11 S/CO (0-0.79); HBsAg Index 0.26 S/CO (0-0.99); Hep A IgM AB NONREACTIVE (NonReactive); Hep A IgM S/CO 0.15 S/CO (0-0.79); Hep B Surf Ag NONREACTIVE S/CO (NonReactive); Hep C IgG Ab NONREACTIVE S/CO (NonReactive); Hepatitis B Core IgM Abs NONREACTIVE S/CO (NonReactive)
[2024-04-07] MEDS: Lactated Ringer's 1,000 ML IV SCH (21:55)
[2024-04-07] MEDS: Famotidine/PF 20 mg/2ml Vial SLOW IVP SCH (21:55)
[2024-04-07 22:52] VITALS: BMI 34.6
[2024-04-08 05:26] LABS: #Basophils 0.04 10x3/uL (0.0-0.2); %Basophils 0.8 % (0.0-1.0); %Eosinophils 4.9 % (0.0-10.0); %Lymphocytes 34.6 % (21.0-51.0); %Monocytes 7.8 % (0.0-10.0); %Neutrophils 51.5 % (42.0-75.0); Hematocrit 32.4 % (36.0-47.0); Hemoglobin 10.3 g/dL (12.0-16.0); Mean Corpuscular HGB CONC 31.8 g/dL (32.0-36.0); Mean Corpuscular Hemoglobin 30.2 pg (27.0-31.0); Mean Platelet Volume 9.6 fL (7.4-10.4); Platelet Count 181 10x3/uL (130-400); RBC Distribution Width 14.6 % (11.5-14.5); Red Blood Cell (RBC) Count 3.41 mill/uL (4.20-5.40)
[2024-04-08 05:43] LABS: ALT (SGPT) 840 U/L (8-55); AST (SGOT) 689 U/L (5-34); Albumin 2.7 g/dL (3.4-4.8); Alkaline Phosphatase 223 U/L (40-110); Anion Gap 14 mmol/L (10-20); BUN (Urea Nitrogen) 13 mg/dL (9.8-20.1); Bilirubin, Total 1.9 mg/dL (0.2-1.2); Calc. Creatinine Clearance 78 mL/min (70-130); Calcium 9.2 mg/dL (7.8-10.44); Carbon Dioxide 26 mmol/L (23-31); Chloride 108 mmol/L (98-107); Estimated GFR 70; Globulin 3.2 g/dL (2.4-3.5); Glucose 83 mg/dL (83-110); Potassium 3.8 mmol/L (3.5-5.1); Protein, Total 5.9 g/dL (5.8-8.1); Sodium 144 mmol/L (136-145)
[2024-04-08] MEDS ORDERED: Magnevist 469MG/ML 20 ML VIAL ONE (12:37)
[2024-04-08 12:59] LABS: INR-International Normal Ratio 1.1; Prothrombin Time 14.2 sec (12.0-14.7)
[2024-04-09] MEDS: traZODone HCl 50 MG TAB PO SCH ×2 (00:21→20:34)
[2024-04-09 05:43] LABS: INR-International Normal Ratio 1.1
[2024-04-09 06:00] LABS: ALT (SGPT) 579 U/L (8-55); AST (SGOT) 331 U/L (5-34); Albumin 2.7 g/dL (3.4-4.8); Alkaline Phosphatase 222 U/L (40-110); Anion Gap 11 mmol/L (10-20); BUN (Urea Nitrogen) 15 mg/dL (9.8-20.1); Bilirubin, Total 0.7 mg/dL (0.2-1.2); Calc. Creatinine Clearance 74 mL/min (70-130); Calcium 9.5 mg/dL (7.8-10.44); Carbon Dioxide 26 mmol/L (23-31); Chloride 108 mmol/L (98-107); Estimated GFR 66; Globulin 3.2 g/dL (2.4-3.5); Glucose 83 mg/dL (83-110); Iron 115 ug/dL (50-170); Iron Binding Capacity, Total 251 mcg/dL (265-497); Potassium 3.8 mmol/L (3.5-5.1); Protein, Total 5.9 g/dL (5.8-8.1); Sodium 141 mmol/L (136-145)
[2024-04-09] MEDS ORDERED: ALPRAZolam 0.5 MG TAB PO PRN (07:44)
[2024-04-09] MEDS: Mirabegron ER 25 MG ER.TAB PO SCH (08:28)
[2024-04-09] MEDS: Fluticasone Propionate Nasal Spray 16 gm Bottle NASAL SCH (08:28)
[2024-04-09] MEDS: Sertraline 100 MG TAB PO SCH (08:28)
[2024-04-09] MEDS: Apixaban 2.5 MG TAB PO SCH (08:28)
[2024-04-09] MEDS: Pantoprazole DR 40 MG TAB PO SCH (08:28)
[2024-04-09] MEDS: cycloSPORINE 0.05% Ophthalmic Droperette EA EYE SCH (08:53)
[2024-04-09] MEDS: Morphine 4 MG/ML VIAL SLOW IVP PRN (11:37)
[2024-04-10] MEDS: Levothyroxine Sodium 75 MCG TAB PO SCH (06:00)
[2024-04-10 06:37] LABS: #Basophils 0.04 10x3/uL (0.0-0.2); %Basophils 0.7 % (0.0-1.0); %Eosinophils 4.1 % (0.0-10.0); %Lymphocytes 31.7 % (21.0-51.0); %Monocytes 9.1 % (0.0-10.0); Hematocrit 31.9 % (36.0-47.0); Hemoglobin 10.2 g/dL (12.0-16.0); Mean Corpuscular Hemoglobin 30.6 pg (27.0-31.0); Mean Corpuscular Volume 95.8 fL (78.0-98.0); Mean Platelet Volume 9.7 fL (7.4-10.4); Platelet Count 177 10x3/uL (130-400); RBC Distribution Width 14.6 % (11.5-14.5); Red Blood Cell (RBC) Count 3.33 mill/uL (4.20-5.40)
[2024-04-10 07:02] LABS: ALT (SGPT) 481 U/L (8-55); AST (SGOT) 292 U/L (5-34); Albumin 2.6 g/dL (3.4-4.8); Alkaline Phosphatase 273 U/L (40-110); Anion Gap 12 mmol/L (10-20); BUN (Urea Nitrogen) 15 mg/dL (9.8-20.1); Bilirubin, Total 0.7 mg/dL (0.2-1.2); Calc. Creatinine Clearance 82 mL/min (70-130); Calcium 9.2 mg/dL (7.8-10.44); Carbon Dioxide 25 mmol/L (23-31); Chloride 107 mmol/L (98-107); Estimated GFR 74; Globulin 3.1 g/dL (2.4-3.5); Glucose 102 mg/dL (83-110); Potassium 3.9 mmol/L (3.5-5.1); Protein, Total 5.7 g/dL (5.8-8.1); Sodium 140 mmol/L (136-145)
[2024-04-11 06:59] LABS: #Basophils 0.05 10x3/uL (0.0-0.2); %Basophils 0.6 % (0.0-1.0); %Eosinophils 3.6 % (0.0-10.0); %Lymphocytes 26.6 % (21.0-51.0); %Neutrophils 62.6 % (42.0-75.0); Hematocrit 32.4 % (36.0-47.0); Hemoglobin 10.4 g/dL (12.0-16.0); Mean Corpuscular HGB CONC 32.1 g/dL (32.0-36.0); Mean Corpuscular Volume 96.4 fL (78.0-98.0); Mean Platelet Volume 9.8 fL (7.4-10.4); Platelet Count 172 10x3/uL (130-400); Red Blood Cell (RBC) Count 3.36 mill/uL (4.20-5.40)
[2024-04-11 07:30] LABS: ALT (SGPT) 361 U/L (8-55); AST (SGOT) 165 U/L (5-34); Albumin 2.6 g/dL (3.4-4.8); Alkaline Phosphatase 236 U/L (40-110); Anion Gap 11 mmol/L (10-20); BUN (Urea Nitrogen) 15 mg/dL (9.8-20.1); Bilirubin, Total 0.6 mg/dL (0.2-1.2); Calc. Creatinine Clearance 77 mL/min (70-130); Calcium 9.1 mg/dL (7.8-10.44); Carbon Dioxide 26 mmol/L (23-31); Chloride 108 mmol/L (98-107); Estimated GFR 69; Globulin 3.1 g/dL (2.4-3.5); Glucose 95 mg/dL (83-110); Potassium 3.9 mmol/L (3.5-5.1); Protein, Total 5.7 g/dL (5.8-8.1); Sodium 141 mmol/L (136-145)
[2024-04-11 10:15] LABS: Alpha-1-Antitrypsin 162 mg/dL (101-187); Smooth Muscle Total ABS 4 Units (0-19)
[2024-04-11] MEDS: Acetaminophen 325 MG TAB PO PRN (15:54)
[2024-04-12 04:31] LABS: #Basophils 0.05 10x3/uL (0.0-0.2); %Basophils 0.7 % (0.0-1.0); %Eosinophils 4.6 % (0.0-10.0); %Lymphocytes 33.4 % (21.0-51.0); %Monocytes 8.2 % (0.0-10.0); %Neutrophils 52.5 % (42.0-75.0); Hematocrit 32.3 % (36.0-47.0); Hemoglobin 10.3 g/dL (12.0-16.0); Mean Corpuscular HGB CONC 31.9 g/dL (32.0-36.0); Mean Corpuscular Hemoglobin 30.9 pg (27.0-31.0); Platelet Count 166 10x3/uL (130-400); RBC Distribution Width 15.3 % (11.5-14.5); Red Blood Cell (RBC) Count 3.33 mill/uL (4.20-5.40)
[2024-04-12 04:48] LABS: ALT (SGPT) 278 U/L (8-55); AST (SGOT) 118 U/L (5-34); Albumin 2.5 g/dL (3.4-4.8); Alkaline Phosphatase 292 U/L (40-110); Anion Gap 11 mmol/L (10-20); BUN (Urea Nitrogen) 15 mg/dL (9.8-20.1); Bilirubin, Total 0.5 mg/dL (0.2-1.2); Calc. Creatinine Clearance 74 mL/min (70-130); Calcium 9.1 mg/dL (7.8-10.44); Carbon Dioxide 25 mmol/L (23-31); Chloride 107 mmol/L (98-107); Estimated GFR 65; Globulin 3.1 g/dL (2.4-3.5); Glucose 91 mg/dL (83-110); Potassium 3.9 mmol/L (3.5-5.1); Protein, Total 5.6 g/dL (5.8-8.1); Sodium 139 mmol/L (136-145)
[2024-04-12] MEDS: Loratadine 10 MG TAB PO SCH (08:34)
[2024-04-12] MEDS ORDERED: Indocyanine Green 25 MG/10 ML VIAL ONE (09:45)
[2024-04-12] MEDS ORDERED: Bupivacaine 0.25% HCL 30 ML VIAL ONE (09:45)
[2024-04-12] MEDS ORDERED: EPINEPHrine 1 MG/ML VIAL ONE (09:45)
[2024-04-12] MEDS ORDERED: fentaNYL PF 100 MCG/2 ML SYRINGE ONE (10:29)
[2024-04-12] MEDS ORDERED: PROPOFOL 20 ML ONE (10:29)
[2024-04-12] MEDS ORDERED: CEFAZOLIN 2 GM VIAL ONE (10:29)
[2024-04-12] MEDS ORDERED: Sodium Chloride 0.9% 100 ML ONE (10:29)
[2024-04-12] MEDS ORDERED: Lidocaine 1% PF 5 ML VIAL ONE (10:30)
[2024-04-12] MEDS ORDERED: Midazolam HCl 2 mg/2 ml Vial ONE (10:40)
[2024-04-12] MEDS ORDERED: PHENYLEPHRINE-NS 100 MCG/ML 10 ML SYRINGE ONE (11:39)
[2024-04-12] MEDS ORDERED: Ondansetron PF 4 MG/2 ML Vial ONE (11:39)
[2024-04-12] MEDS ORDERED: Dexamethasone 20 MG/5 ML VIAL ONE (11:39)
[2024-04-12 11:51] LABS: ANA Symphony (Qualitative) Negative (Negative); ANA Symphony (Quantitative) 0.3 Ratio (< 0.7 Negative); EliA Vaculitis New Method **** NEW METHOD ****; Mitochondrial Ab 0.9 U/mL (<4 Negative); dsDNA IgG Antibody 2.1 IU/mL (<10 Negative)
[2024-04-12] MEDS ORDERED: SUGAMMADEX SODIUM 200 MG/2 ML VIAL ONE (12:03)
[2024-04-12] MEDS ORDERED: fentaNYL 50 mcg/mL 1 mL Vial ONE ×3 (12:11→13:26)
[2024-04-12] MEDS ORDERED: Ketorolac Tromethamine 30 MG (1 mL) VIAL ONE (12:17)
[2024-04-12] MEDS ORDERED: Dextrose 50% Abboject 50 ML SYRINGE SLOW IVP PRN (12:46)
[2024-04-12] MEDS ORDERED: Glucagon 1 MG/ML KIT IM PRN (12:46)
[2024-04-12] MEDS ORDERED: Mag-Al 1200 mg/1200 mg/30 ML UDCUP PO PRN (12:46)
[2024-04-12] MEDS ORDERED: Dextrose 5% in Water 1,000 ML IV PRN (12:46)
[2024-04-12] MEDS ORDERED: Ipratropium/Albuterol 3 ML NEB NEB PRN (12:46)
[2024-04-12] MEDS ORDERED: Labetalol HCl 100 MG/20 ML VIAL ONE (12:55)
[2024-04-12] MEDS: Polyethylene Glycol 3350 17 GM Packet PO PRN (17:04)
[2024-04-12] MEDS: Ketorolac Tromethamine 30 MG (1 mL) VIAL IVP SCH (17:05)
[2024-04-12] MEDS: Ondansetron PF 4 MG/2 ML Vial IVP PRN (19:42)
[2024-04-12] MEDS: Docusate 100 MG CAP PO SCH (21:46)
[2024-04-12] MEDS: Famotidine 20 MG TAB PO SCH (21:52)
[2024-04-13 04:19] LABS: #Basophils Less than 0.03 10x3/uL (0.0-0.2); #Eosinphils Less than 0.03 10x3/uL (0.0-0.7); %Basophils 0.2 % (0.0-1.0); %Lymphocytes 7.9 % (21.0-51.0); %Monocytes 6.5 % (0.0-10.0); %Neutrophils 84.8 % (42.0-75.0); Hematocrit 34.8 % (36.0-47.0); Hemoglobin 11.3 g/dL (12.0-16.0); Mean Corpuscular HGB CONC 32.5 g/dL (32.0-36.0); Mean Corpuscular Hemoglobin 30.2 pg (27.0-31.0); Platelet Count 185 10x3/uL (130-400); RBC Distribution Width 14.9 % (11.5-14.5); Red Blood Cell (RBC) Count 3.74 mill/uL (4.20-5.40)
[2024-04-13 05:02] LABS: ALT (SGPT) 495 U/L (8-55); AST (SGOT) 575 U/L (5-34); Albumin 2.7 g/dL (3.4-4.8); Alkaline Phosphatase 470 U/L (40-110); Anion Gap 10 mmol/L (10-20); BUN (Urea Nitrogen) 18 mg/dL (9.8-20.1); Bilirubin, Total 1.7 mg/dL (0.2-1.2); Calc. Creatinine Clearance 78 mL/min (70-130); Calcium 9.3 mg/dL (7.8-10.44); Carbon Dioxide 25 mmol/L (23-31); Chloride 104 mmol/L (98-107); Estimated GFR 70; Globulin 3.4 g/dL (2.4-3.5); Glucose 117 mg/dL (83-110); Potassium 4.1 mmol/L (3.5-5.1); Protein, Total 6.1 g/dL (5.8-8.1); Sodium 135 mmol/L (136-145)
[2024-04-13] MEDS: HYDROcodone/Acetaminophen 10/325 mg Tablet PO PRN (15:41)
[2024-04-13] MEDS: Apixaban 2.5 MG TAB PO SCH (20:21)
[2024-04-13] MEDS: Calcium Carbonate 500 MG ChewTAB PO PRN (20:21)
[2024-04-13] MEDS: Mirtazapine 15 MG TAB PO SCH (21:02)
[2024-04-14 09:05] LABS: #Basophils 0.04 10x3/uL (0.0-0.2); %Basophils 0.5 % (0.0-1.0); %Eosinophils 3.1 % (0.0-10.0); %Lymphocytes 21.4 % (21.0-51.0); %Monocytes 8.8 % (0.0-10.0); %Neutrophils 65.7 % (42.0-75.0); Hematocrit 32.2 % (36.0-47.0); Hemoglobin 10.3 g/dL (12.0-16.0); Mean Corpuscular Hemoglobin 31.2 pg (27.0-31.0); Mean Corpuscular Volume 97.6 fL (78.0-98.0); Mean Platelet Volume 10.4 fL (7.4-10.4); Platelet Count 164 10x3/uL (130-400); RBC Distribution Width 15.7 % (11.5-14.5)
[2024-04-14 10:00] LABS: ALT (SGPT) 532 U/L (8-55); AST (SGOT) 628 U/L (5-34); Albumin 2.7 g/dL (3.4-4.8); Alkaline Phosphatase 523 U/L (40-110); Anion Gap 12 mmol/L (10-20); BUN (Urea Nitrogen) 15 mg/dL (9.8-20.1); Bilirubin, Total 3.4 mg/dL (0.2-1.2); Calc. Creatinine Clearance 77 mL/min (70-130); Calcium 9.3 mg/dL (7.8-10.44); Carbon Dioxide 28 mmol/L (23-31); Chloride 107 mmol/L (98-107); Estimated GFR 69; Globulin 3.3 g/dL (2.4-3.5); Glucose 86 mg/dL (83-110); Sodium 143 mmol/L (136-145)
[2024-04-14 15:54] VITALS: BMI 34.6
[2024-04-14] MEDS: HYDROcodone/Acetaminophen 10/325 mg Tablet PO PRN (17:06)
[2024-04-15 05:46] LABS: #Basophils 0.06 10x3/uL (0.0-0.2); %Basophils 0.7 % (0.0-1.0); %Eosinophils 3.3 % (0.0-10.0); %Lymphocytes 21.9 % (21.0-51.0); %Monocytes 9.6 % (0.0-10.0); %Neutrophils 63.2 % (42.0-75.0); Hematocrit 30.8 % (36.0-47.0); Hemoglobin 9.9 g/dL (12.0-16.0); Mean Corpuscular HGB CONC 32.1 g/dL (32.0-36.0); Mean Corpuscular Hemoglobin 30.6 pg (27.0-31.0); Mean Corpuscular Volume 95.1 fL (78.0-98.0); Mean Platelet Volume 10.1 fL (7.4-10.4); Platelet Count 168 10x3/uL (130-400); RBC Distribution Width 15.6 % (11.5-14.5); Red Blood Cell (RBC) Count 3.24 mill/uL (4.20-5.40)
[2024-04-15 06:25] LABS: ALT (SGPT) 386 U/L (8-55); AST (SGOT) 306 U/L (5-34); Albumin 2.3 g/dL (3.4-4.8); Alkaline Phosphatase 424 U/L (40-110); Bilirubin, Direct 0.7 mg/dL (0.1-0.3); Bilirubin, Total 1.4 mg/dL (0.2-1.2); Protein, Total 5.4 g/dL (5.8-8.1)
[2024-04-15] MEDS: HYDROcodone/Acetaminophen 5/325 mg Tablet PO PRN (08:25)
[2024-04-16 00:21] VITALS: TEMP 98.4
[2024-04-16 06:11] LABS: #Basophils 0.05 10x3/uL (0.0-0.2); %Basophils 0.7 % (0.0-1.0); %Eosinophils 5.6 % (0.0-10.0); %Lymphocytes 30.7 % (21.0-51.0); %Monocytes 10.1 % (0.0-10.0); %Neutrophils 51.9 % (42.0-75.0); Hematocrit 32.1 % (36.0-47.0); Hemoglobin 10.4 g/dL (12.0-16.0); Mean Corpuscular HGB CONC 32.4 g/dL (32.0-36.0); Mean Corpuscular Hemoglobin 30.6 pg (27.0-31.0); Mean Corpuscular Volume 94.4 fL (78.0-98.0); Mean Platelet Volume 9.8 fL (7.4-10.4); Platelet Count 199 10x3/uL (130-400); RBC Distribution Width 15.5 % (11.5-14.5)
[2024-04-16 06:22] LABS: ALT (SGPT) 287 U/L (8-55); AST (SGOT) 149 U/L (5-34); Albumin 2.4 g/dL (3.4-4.8); Alkaline Phosphatase 363 U/L (40-110); Anion Gap 12 mmol/L (10-20); BUN (Urea Nitrogen) 14 mg/dL (9.8-20.1); Bilirubin, Direct 0.5 mg/dL (0.1-0.3); Bilirubin, Total 0.9 mg/dL (0.2-1.2); Calc. Creatinine Clearance 73 mL/min (70-130); Calcium 8.8 mg/dL (7.8-10.44); Carbon Dioxide 28 mmol/L (23-31); Chloride 112 mmol/L (98-107); Estimated GFR 65; Glucose 84 mg/dL (83-110); Protein, Total 5.7 g/dL (5.8-8.1)
[2024-04-16 06:33] LABS: Sodium 148 mmol/L (136-145)
[2024-04-16 08:16] VITALS: BP 155/77
== END 2024-04-16 15:00 | disposition home or self-care (01) | DRG 417 ==
LOC: ERS 15:14 → T4-A 17:51 → INTOOBSV 17:51 → OBSVTOIN 04-08 16:32
PROVIDERS: ADMIT Internal Medicine; ATTEND Internal Medicine
PROC: 0FT44ZZ Resection of Gallbladder, Percutaneous Endoscopic Approach (ICD-10-PCS; principal; 2024-04-12)
PROC: 8E0W4CZ Robotic Assisted Procedure of Trunk Region, Percutaneous Endoscopic Approach (ICD-10-PCS; 2024-04-12)
DX: K81.9 Cholecystitis, unspecified (principal); I26.99 Other pulmonary embolism without acute cor pulmonale; I10 Essential (primary) hypertension; E78.5 Hyperlipidemia, unspecified; E03.9 Hypothyroidism, unspecified; F31.9 Bipolar disorder, unspecified; Z96.653 Presence of artificial knee joint, bilateral; Z66 Do not resuscitate; K82.8 Other specified diseases of gallbladder; G89.18 Other acute postprocedural pain; R79.89 Other specified abnormal findings of blood chemistry; M48.04 Spinal stenosis, thoracic region; Z86.718 Personal history of other venous thrombosis and embolism; Z90.710 Acquired absence of both cervix and uterus; Z99.3 Dependence on wheelchair; Z79.890 Hormone replacement therapy; Z79.899 Other long term (current) drug therapy
CPT/HCPCS: 36415; 74183; 76705; 78226; 78227; 80048; 80053; 80074; 80076; 82103; 82728; 83516; 83540; 83550; 83690; 84484; 85025; 85610; 86015; 86038; 86225; 88304; 93005; 96361; 96374; 96375; 96376; A9537; A9579; C1713; C1776; C1889; G0378; J0171; J0665; J1100; J1885; J2250; J2270; J2405; J2704; J3010; J3490; J7120; S0028

== ENCOUNTER 2024-05-02 14:08 | Outpatient (CLI) | payer MEDICARE | END 2024-05-02 14:09 | disposition home or self-care (01) | LOC: BICMAMMO 14:08 | PROVIDERS: ATTEND Family Medicine | DX: N63.10 Unspecified lump in the right breast, unspecified quadrant (principal); N63.20 Unspecified lump in the left breast, unspecified quadrant | CPT/HCPCS: 76642; 77066; G0279 ==